=== PATIENT | female | born 1935 | race Caucasian/White ===

== ENCOUNTER 2019-01-08 12:18 | Inpatient (IN) | payer MEDICARE, OTHER ==
[~2019-01-08] VITALS: Ht 160 cm; Wt 102.1 kg
[2019-01-11 14:00] VITALS: BP 147/86
== END 2019-01-11 17:30 | disposition home or self-care (01) | DRG 246 ==
LOC: ED 12:58 → EDIP 13:40 → 5SO 17:44
PROVIDERS: ADMIT Family Medicine; ATTEND Family Medicine
PROC: 027036Z Dilation of Coronary Artery, One Artery with Three Drug-eluting Intraluminal Devices, Percutaneous Approach (ICD-10-PCS; principal; 2019-01-09)
PROC: 4A023N7 Measurement of Cardiac Sampling and Pressure, Left Heart, Percutaneous Approach (ICD-10-PCS; 2019-01-09)
PROC: B2111ZZ Fluoroscopy of Multiple Coronary Arteries using Low Osmolar Contrast (ICD-10-PCS; 2019-01-09)
PROC: B2151ZZ Fluoroscopy of Left Heart using Low Osmolar Contrast (ICD-10-PCS; 2019-01-09)
DX: I21.4 Non-ST elevation (NSTEMI) myocardial infarction (principal); I50.23 Acute on chronic systolic (congestive) heart failure; N17.9 Acute kidney failure, unspecified; D68.69 Other thrombophilia; D72.829 Elevated white blood cell count, unspecified; E03.9 Hypothyroidism, unspecified; E66.9 Obesity, unspecified; E78.5 Hyperlipidemia, unspecified; E83.51 Hypocalcemia; E86.0 Dehydration; I11.0 Hypertensive heart disease with heart failure; I25.5 Ischemic cardiomyopathy; I48.91 Unspecified atrial fibrillation; I25.10 Atherosclerotic heart disease of native coronary artery without angina pectoris; I50.9 Heart failure, unspecified; Z82.3 Family history of stroke; Z82.49 Family history of ischemic heart disease and other diseases of the circulatory system; Z87.891 Personal history of nicotine dependence; Z90.710 Acquired absence of both cervix and uterus; Z68.39 Body mass index [BMI] 39.0-39.9, adult; R73.9 Hyperglycemia, unspecified
CPT/HCPCS: 36415; 71045; 80053; 80061; 80069; 83036; 83735; 83880; 84439; 84443; 84481; 84484; 85025; 85520; 85610; 93005; 93306; 93458; 96374; 99156; 99157; 99291; C1769; C1894; C9600; G0378; J0583; J1644; J2250; J3010; Q0162; C1725; C1874; C1887; J3475; J7120; Q9967

== ENCOUNTER → 2019-07-27 | Outpatient (CLI) | payer MEDICARE ==
[~2019-07-27] MED LIST: ATOR-2 PO; CLOP75TA PO; DIGO250T3 PO; FURO20TA3 PO; LOSA25TA25 PO; METO25TA4 PO; SPIR25TA5 PO
== END | disposition home or self-care (01) ==
LOC: CFH 12:42
PROVIDERS: ATTEND Internal Medicine Cardiovascular Disease
DX: I08.3 Combined rheumatic disorders of mitral, aortic and tricuspid valves (principal); I10 Essential (primary) hypertension; E78.5 Hyperlipidemia, unspecified; I25.2 Old myocardial infarction
CPT/HCPCS: 93306

== ENCOUNTER → 2021-01-02 | Outpatient (CLI) | payer MEDICARE | END | disposition home or self-care (01) | LOC: CVU 12:39 | PROVIDERS: ATTEND Internal Medicine Cardiovascular Disease | DX: I08.8 Other rheumatic multiple valve diseases (principal); I42.9 Cardiomyopathy, unspecified | CPT/HCPCS: 93306 ==